=== PATIENT | male | born 1965 | race Two or more races ===

== ENCOUNTER 2017-04-17 06:13 | Emergency (ER) | payer OTHER ==
[~2017-04-17] VITALS: Ht 167.6 cm; Wt 98.9 kg
--- NOTE | 2017-04-17 06:15 | NUR ---
BIBRA 89 C/O FEELING DIZZY WHILE DRIVING. HX VERTIGO. PT AOX3 RR EVEN AND UNLABORED. NO SOB NOTED. NAD NOTED. NO NVD AT THIS TIME. PT GOWNED AND PLACED ON MONITOR DR. ESQUIVEL AT BEDSIDE FOR EVAL.
[2017-04-17] MEDS ORDERED: MECLIZINE HCL 25 MG TABLET ONE (06:53)
[2017-04-17] MEDS ORDERED: METOCLOPRAMIDE HCL 10 MG/2 ML VIAL ONE (06:54)
[2017-04-17] MEDS ORDERED: MECLIZINE HCL 12.5 MG TABLET PO ONE (07:00)
[2017-04-17] MEDS ORDERED: IV NS 0.9% 1,000 ML BAG IV ONE (07:00)
[2017-04-17] MEDS ORDERED: METOCLOPRAMIDE HCL 10 MG/2 ML VIAL IV ONE (07:00)
--- NOTE | 2017-04-17 07:21 | NUR ---
REPORT GIVEN TO GILMA POE FOR [facility]
--- NOTE | 2017-04-17 07:22 | NUR ---
RECEIVED REPORT FOR [facility].
[2017-04-17 07:29] LABS: BASOPHILS % (AUTO) 0.2 % (0.0-2.0); EOSINOPHILS # (AUTO) 0.1 /CMM (0.0-0.7); EOSINOPHILS % (AUTO) 0.8 % (0.0-6.0); HEMATOCRIT 42 % (39-51); HEMOGLOBIN 14.1 g/dL (13.5-17.5); LYMPHOCYTES # (AUTO) 2.8 /CMM (0.8-4.8); LYMPHOCYTES % (AUTO) 22.1 % (20.0-44.0); MEAN CORPUSCULAR HEMOGLOBIN 31 PG (26.0-33.0); MEAN CORPUSCULAR HGB CONC 33 g/dl (31.0-36.0); MEAN CORPUSCULAR VOLUME 93 fL (80-96); MONOCYTES # (AUTO) 0.7 /CMM (0.1-1.30); MONOCYTES % (AUTO) 5.2 % (2.0-12.0); NEUTROPHILS % (AUTO) 71.7 % (43.0-81.0); PLATELET COUNT (AUTO) 285 /CMM (150-450); RDW COEFFICIENT OF VARIATION 13.3 (11.5-15.0); RED BLOOD CELL COUNT(AUTO) 4.56 MIL/uL (4.5-6.0); WHITE BLOOD COUNT (AUTO) 12.5 K/uL (4.3-11.0)
[2017-04-17 07:41] LABS: CALCIUM, SERUM 8.7 mg/dL (8.5-10.1); CREATININE 0.8 mg/dL (0.6-1.3); POTASSIUM 4.2 mmol/L (3.5-5.1)
[2017-04-17 08:23] VITALS: BP 144/82
--- NOTE | 2017-04-17 08:26 | NUR ---
IV removed. Catheter intact and site benign. Pressure and 4x4 applied to site. No bleeding noted. Patient discharged to home in stable condition. Written and verbal after care instructions given. Patient verbalizes understanding of instruction.
== END 2017-04-17 08:25 | disposition home or self-care (01) ==
LOC: ER 06:18
DX: H81.10 Benign paroxysmal vertigo, unspecified ear (principal); I10 Essential (primary) hypertension; E11.9 Type 2 diabetes mellitus without complications
CPT/HCPCS: 36415; 80048; 85025; 93005; 96361; 96374; 99285; A4606; J2765; J7030; J8597; Z7610